=== PATIENT | male | born 2000 | race Two or more races ===

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

== ENCOUNTER 2019-02-10 15:58 | Emergency (ER) | payer BC, MEDICAID, OTHER ==
[~2019-02-10] VITALS: Ht 177.8 cm; Wt 74.8 kg
[2019-02-10 16:27] VITALS: BP 132/81
[2019-02-10] MEDS ORDERED: cefTRIAXone SOD 1,000 MG VL IM ONE (16:45)
== END 2019-02-10 17:57 | disposition home or self-care (01) ==
LOC: ER 15:58
DX: J02.0 Streptococcal pharyngitis (principal); Z88.0 Allergy status to penicillin; Z88.2 Allergy status to sulfonamides
CPT/HCPCS: 96372; 99283; J0696